=== PATIENT | male | born 1935 | race Caucasian/White ===

== ENCOUNTER 2016-12-24 14:56 | Inpatient (IN) | payer MEDICARE ==
[~2016-12-24] VITALS: Ht 180.3 cm; Wt 89.1 kg
--- NOTE | 2016-12-24 16:00 | NUR ---
DIRECT ADMIT VIA [facility]. AMBULATED TO BED WITH STAND BY ASSIST. RESPS EVEN AND UNLABORED ON O2 VIA NC, TELE MONITOR IN PLACE. ABLE TO SPEAK IN COMPLETE SENTENCES WITHOUT DIFFICULTY. DENIES PAIN OR DISCOMFORT. PO FLUIDS OFFERED. ORIENTED TO ROOM AND CALL SYSTEM. SAFETY PRECAUTIONS REINFORCED. BED IN LOWEST POSITION WITH WHEELS LOCKED. CALL LIGHT WITHIN REACH. WILL CONTINUE TO MONITOR.
[2016-12-24 16:10] VITALS: BP 150/57
[2016-12-24 16:44] LABS: HEMATOCRIT 28.8 % (39.0-50.0); HEMOGLOBIN 9.1 g/dl (14.0-18.0); IMMATURE GRANULOCYTES 0.2 % (0.0-1.0); MEAN CELL VOLUME 110.3 fL CALC (80.0-100.0); MEAN CORPUSCULAR HGB 34.9 pG CALC (26.0-32.0); MEAN CORPUSCULAR HGB CONC 31.6 g/L CALC (32.0-36.0); NEUT# 3.31 thou/uL (1.82-7.42); RED BLOOD COUNT 2.61 mill/uL (4.70-6.10); RED CELL DISTRI WIDTH 16.1 % (11.5-15.5)
[2016-12-24 17:19] LABS: ALBUMIN 3.9 g/dL (3.2-5.0); ALKALINE PHOSPHATASE 52 u/l (38-126); ANION GAP 15 (6-22 (CALC)); BILIRUBIN, TOTAL 0.6 mg/dL (0.0-1.4); BUN 25 mg/dL (8-23); BUN/CREATININE RATIO 24 (12-20 (CALC)); CARBON DIOXIDE 23 mmol/l (22-30); CHLORIDE 110 mmol/l (95-108); CREATININE 1.1 mg/dL (0.7-1.3); GFR > 60 ML/MIN (>=60 (CALC)); GFR FOR AFR.AMER. > 60 ML/MIN (>=60 (CALC)); GLUCOSE 119 mg/dL (82-115); POTASSIUM 4.1 mmol/l (3.5-5.1); SGOT/AST 13 u/l (19-48); SGPT/ALT 24 u/l (11-66); SODIUM 145 mmol/l (137-146); TOTAL PROTEIN 6.9 g/dL (6.3-8.2)
[2016-12-24 19:20] VITALS: BP 125/63
--- NOTE | 2016-12-24 19:20 | NUR ---
PT SITTING UP IN BED. PT IS ALERT AND ORIENTED X3. PERRLA. RESP ARE EVEN AND UNLABORED. LUNGS ARE CLEAR. HR IRREGULAR. PULSES PALPABLE THROUGHOUT.NO EDEMA NOTED. BS ACTIVE. PT REPORTS HAVING A BM TODAY. TELE IN PLACE. #20 RAC. NO REDNESS OR EDEMA NOTED. WILL CONTINUE TO MONITOR
[2016-12-25] VITALS (7 sets, daily range): BP systolic 97–128; BP diastolic 50–60
--- NOTE | 2016-12-25 00:33 | NUR ---
PT RESTING IN BED WITH EYES CLOSED. AROUSES TO VERBAL STIMULI. RESP ARE EVEN AND UNLABORED. TELE IN PLACE. O2 2L NC IN PLACE. NO CHANGE IN PT STATUS WILL CONTINUE TO MONITOR.
--- NOTE | 2016-12-25 04:00 | NUR ---
PT RESTING IN BED WITH EYES CLOSED. AROUSES TO VERBAL STIMULI. RESP ARE EVEN AND UNLABORED. NO CHANGE IN PT CONDITION. TELE IN PLACE. O2 2L NC IN PLACE. WILL CONTINUE TO MONITOR
[2016-12-25 05:40] LABS: HEMOGLOBIN 8.6 g/dl (14.0-18.0); MEAN CELL VOLUME 109.3 fL CALC (80.0-100.0); MEAN CORPUSCULAR HGB 34.8 pG CALC (26.0-32.0); MEAN CORPUSCULAR HGB CONC 31.9 g/L CALC (32.0-36.0); RED BLOOD COUNT 2.47 mill/uL (4.70-6.10)
[2016-12-25 05:41] LABS: ANION GAP 15 (6-22 (CALC)); BUN 24 mg/dL (8-23); BUN/CREATININE RATIO 24 (12-20 (CALC)); CALCIUM 8.8 mg/dL (8.4-10.2); CALCULATED LDLCHOLESTEROL 75 mg/dL (62-129 (CALC)); CARBON DIOXIDE 23 mmol/l (22-30); CHLORIDE 111 mmol/l (95-108); GFR > 60 ML/MIN (>=60 (CALC)); GFR FOR AFR.AMER. > 60 ML/MIN (>=60 (CALC)); GLUCOSE 122 mg/dL (82-115); HDL CHOLESTEROL 29 mg/dL (>=40); MAGNESIUM 2.3 mg/dL (1.6-2.3); POTASSIUM 4.3 mmol/l (3.5-5.1); SODIUM 144 mmol/l (137-146); TOTAL CHOLESTEROL 116 mg/dl (0-199); TOTAL TRIGLYCERIDES 60 mg/dl (30-149); VLDL CHOLESTROL 12 mg/dl (0-38 (CALC))
--- NOTE | 2016-12-25 06:00 | NUR ---
PT TO RADIOLOGY FOR CHEST XRAY
--- NOTE | 2016-12-25 06:30 | NUR ---
PT RETURNED FROM RADIOLOGY. STOOL SAMPLE OBTAINED AND SENT TO LAB.
--- NOTE | 2016-12-25 07:00 | NUR ---
RECIEVED REPORT FROM AN BECKHAM. PT AWAKE ON ENTRY, RESTING IN SUPINE POSITION. RESP EVEN AND UNLABORED. NO SIGNS OF DISTRESS. NO COMPLAINTS OF PAIN AT THE MOMENT FROM PT. SAFETY PRECAUTIONS IN PLACE. CALL LIGHT WITHIN REACH.
[2016-12-25] MEDS ORDERED: BRILINTA90 MG PO (10:06)
[2016-12-25] MEDS ORDERED: ALLOPURINOL100 MG PO (10:22)
[2016-12-25] MEDS ORDERED: LOSARTAN POTASS50 MG PO (10:34)
[2016-12-25] MEDS ORDERED: FUROSEMIDE20 MG PO (10:41)
[2016-12-25] MEDS ORDERED: PROTONIX40 M2 PO (10:42)
[2016-12-25] MEDS ORDERED: PRAVASTATIN80 MG PO (10:42)
[2016-12-25] MEDS ORDERED: B121000 MCG PO (10:43)
[2016-12-25] MEDS ORDERED: NIACIN ER1000 MG PO (10:44)
[2016-12-25] MEDS ORDERED: ADLT ASA LOW81 MG PO (10:45)
[2016-12-25] MEDS ORDERED: STOOL SOFTENER100 MG PO (10:45)
[2016-12-25] MEDS ORDERED: LOPRESSOR50 M1 PO (10:47)
--- NOTE | 2016-12-25 15:22 | NUR ---
PT RESTING ON SIDE OF BED TALKING WITH FAMILY. NO COMPLAINTS OF PAIN. PT TOOK HIS O2 OFF, HIS O2 SAT IS 96 ON ROOM AIR. RESP EVEN AND UNLABPORED. SAFETY PRECAUTIONS WITH IN PLACE. CALL LIGHT WITHIN REACH.
--- NOTE | 2016-12-25 17:45 | NUR ---
PT EATING DINNER AND WATCHING TV. RESP EVEN AND UNLABORED. NO COMPLAINTS OF PAIN FROM PT. IV SIGHT APPEARS HEALTHY. CALL LIGHT WITHIN REACH.
--- NOTE | 2016-12-25 19:30 | NUR ---
PATIENT RESTING IN BED AT THIS TIME-AWAKE ALERT AND ORIENTEDX3 WITH NO COMPLAINTS. O2 REMOVED AND ROXY CONT TO MONITOR O2 SATS. IV SITE TO RIGHT AC-EMS SITE AND APPEARS HEALTHY AT THIS TIME. PATIENT DENIES ANY DIFFICULTY VOIDING AND STATES THATHE HAD A BM TODAY. INSTRUCTED TO USE URINAL FOR I&O. VERBALIZES UNDERSTANDING. SAFETY PRECAUTIONS REINFORCED. CALL LIGHT IN REACH. WILL CONT TO MONITOR.
--- NOTE | 2016-12-25 21:00 | NUR ---
NEW IV SITE STARTED TO LEFT FOREARM WITH GOOD BLOOD RETURN-#22 GAUGE. EMS SITE TO RIGHT AC D/C'ED. REFUSING TO WEAR TEDS AT THIS TIME. CALL LIGHT IN REACH. WILL CONT TO MONITOR.
--- NOTE | 2016-12-25 23:43 | NUR ---
PATIENT RESTING IN BED AT THIS TIME-AWAKE ALERT AND ORIENTEDX3 WITH NO COMPLAINTS. O2 REMOVED AND WILL CONT TO MONITOR O2 SAT. IV SITE TO RIGHT AC-EMS SITE AND APPEARS HEALTHY AT THIS TIME. PATIENT DENIES ANY DIFFICULTY VOIDING AND STATES THAT HE HAD A BM TODAY. INSTRUCTED TO USE URINAL FOR I&O. VERBALIZES UNDERSTANDING. SAFETY PRECAUTIONS REINFORCED. CALL LIGHT IN REACH. WILL CONT TO MONITOR.
[2016-12-26 05:39] VITALS: BP 99/49
[2016-12-26 05:55] LABS: HEMATOCRIT 27.9 % (39.0-50.0); IMMATURE GRANULOCYTES 0.2 % (0.0-1.0); MEAN CELL VOLUME 108.1 fL CALC (80.0-100.0); MEAN CORPUSCULAR HGB 34.9 pG CALC (26.0-32.0); MEAN CORPUSCULAR HGB CONC 32.3 g/L CALC (32.0-36.0); NEUT# 3.58 thou/uL (1.82-7.42); RED BLOOD COUNT 2.58 mill/uL (4.70-6.10); RED CELL DISTRI WIDTH 15.7 % (11.5-15.5)
[2016-12-26 06:19] LABS: ANION GAP 14 (6-22 (CALC)); BUN 24 mg/dL (8-23); BUN/CREATININE RATIO 24 (12-20 (CALC)); CARBON DIOXIDE 24 mmol/l (22-30); CHLORIDE 108 mmol/l (95-108); GFR > 60 ML/MIN (>=60 (CALC)); GFR FOR AFR.AMER. > 60 ML/MIN (>=60 (CALC)); GLUCOSE 117 mg/dL (82-115); MAGNESIUM 2.1 mg/dL (1.6-2.3); POTASSIUM 4.1 mmol/l (3.5-5.1); SODIUM 142 mmol/l (137-146)
--- NOTE | 2016-12-26 07:00 | NUR ---
REPORT RECIEVED FROM AN CARRIZALES. PT AWAKE ON ENTRY WATCHING TV. NO SIGNS OF DISTRESS. NO COMPLAINTS OF PAIN FROM PT. RESP EVEN AND UNLABORED. SAFETY PRECAUTIONS IN PLACE. CALL LIGHT WITHIN REACH. WILL CONTINUE TO MONITOR HOURLY.
[2016-12-26 07:54] VITALS: BP 126/52
--- NOTE | 2016-12-26 11:50 | NUR ---
PT EATING LUNCH WITH FAMILY AT BEDSIDE. WATCHING TV. PT HAS NO COMPLAINTS OF PAIN. IV SIGHT APPEARS HEALTHY. SAFETY PRECAUTIONS REINFORCED. CALL LIGHT WITHIN REACH.
[2016-12-26] MEDS ORDERED: VENOFER20 MG/ML IM (11:57)
[2016-12-26 12:20] VITALS: BP 94/54
--- NOTE | 2016-12-26 14:25 | NUR ---
Discharge instructions given. Patient verbalizes understanding of same. Discharged in stable condition via Wheelchair to Home with family. All belongings sent with pt.
== END 2016-12-26 14:28 | disposition home or self-care (01) | DRG 811 ==
LOC: MS2 14:56
PROVIDERS: Nurse Practitioner Family; ADMIT Internal Medicine; ATTEND Internal Medicine
PROC: 3E0234Z Introduction of Serum, Toxoid and Vaccine into Muscle, Percutaneous Approach (ICD-10-PCS; principal; 2016-12-26)
DX: D62 Acute posthemorrhagic anemia (principal); I50.43 Acute on chronic combined systolic (congestive) and diastolic (congestive) heart failure; I48.2 Chronic atrial fibrillation; K62.5 Hemorrhage of anus and rectum; I11.0 Hypertensive heart disease with heart failure; I35.0 Nonrheumatic aortic (valve) stenosis; I25.10 Atherosclerotic heart disease of native coronary artery without angina pectoris; E78.5 Hyperlipidemia, unspecified; N40.0 Benign prostatic hyperplasia without lower urinary tract symptoms; I71.9 Aortic aneurysm of unspecified site, without rupture; M54.9 Dorsalgia, unspecified; G89.29 Other chronic pain; I25.2 Old myocardial infarction; Z85.118 Personal history of other malignant neoplasm of bronchus and lung; Z79.02 Long term (current) use of antithrombotics/antiplatelets; Z90.2 Acquired absence of lung [part of]; Z95.1 Presence of aortocoronary bypass graft; Z87.891 Personal history of nicotine dependence; Z23 Encounter for immunization; Z79.82 Long term (current) use of aspirin; Z95.5 Presence of coronary angioplasty implant and graft
CPT/HCPCS: J0885; J1756

== ENCOUNTER 2017-02-05 15:52 | Inpatient (IN) | payer MEDICARE ==
[~2017-02-05] VITALS: Ht 180.3 cm; Wt 90.8 kg
[~2017-02-05 15:52] MED LIST: ADLT ASA LOW81 MG PO; ALLOPURINOL100 MG PO; B121000 MCG PO; BRILINTA90 MG PO; FUROSEMIDE20 MG PO; LOPRESSOR50 M1 PO; LOSARTAN POTASS50 MG PO; NIACIN ER1000 MG PO; PRAVASTATIN80 MG PO; PROTONIX40 M2 PO; STOOL SOFTENER100 MG PO; VENOFER20 MG/ML IM
[2017-02-05 16:15] VITALS: BP 99/59
[2017-02-05] MEDS ORDERED: ASPIRIN 81 LOW81 MG PO (16:54)
[2017-02-05 18:30] VITALS: BP 111/64
[2017-02-06] VITALS (7 sets, daily range): BP systolic 106–115; BP diastolic 50–61
[2017-02-06 05:58] LABS: HEMATOCRIT 24.8 % (39.0-50.0); HEMOGLOBIN 7.7 g/dl (14.0-18.0); IMMATURE GRANULOCYTES 0.4 % (0.0-1.0); MEAN CELL VOLUME 106.4 fL CALC (80.0-100.0); NEUT# 5.08 thou/uL (1.82-7.42); RED BLOOD COUNT 2.33 mill/uL (4.70-6.10); RED CELL DISTRI WIDTH 20.3 % (11.5-15.5)
[2017-02-06 06:08] LABS: ANION GAP 14 (6-22 (CALC)); BUN 24 mg/dL (8-23); BUN/CREATININE RATIO 24 (12-20 (CALC)); CALCIUM 8.3 mg/dL (8.4-10.2); CARBON DIOXIDE 20 mmol/l (22-30); CHLORIDE 112 mmol/l (95-108); GFR > 60 ML/MIN (>=60 (CALC)); GFR FOR AFR.AMER. > 60 ML/MIN (>=60 (CALC)); GLUCOSE 97 mg/dL (82-115); MAGNESIUM 2.1 mg/dL (1.6-2.3); POTASSIUM 4.6 mmol/l (3.5-5.1); SODIUM 141 mmol/l (137-146)
[2017-02-06] MEDS ORDERED: METOPROL TAR25 M1 PO (16:01)
[2017-02-06 20:57] LABS: URINE BILIRUBIN - DIPSTICK NEGATIVE (NEGATIVE); URINE BLOOD DIPSTICK MODERATE (NEGATIVE); URINE CLARITY CLEAR; URINE COLOR YELLOW; URINE GLUCOSE - DIPSTICK NEGATIVE (NEGATIVE); URINE KETONE NEGATIVE (NEGATIVE); URINE LEUK ESTERASE NEGATIVE (NEGATIVE); URINE NITRITE - DIPSTICK NEGATIVE (Negative); URINE PROTEIN - DIPSTICK NEGATIVE (NEG-TRACE)
[2017-02-07] VITALS (11 sets, daily range): BP systolic 99–137; BP diastolic 48–71
[2017-02-07 05:44] LABS: ANION GAP 13 (6-22 (CALC)); BUN 21 mg/dL (8-23); BUN/CREATININE RATIO 23 (12-20 (CALC)); CALCIUM 8.3 mg/dL (8.4-10.2); CARBON DIOXIDE 20 mmol/l (22-30); CHLORIDE 111 mmol/l (95-108); CREATININE 0.9 mg/dL (0.7-1.3); GFR > 60 ML/MIN (>=60 (CALC)); GFR FOR AFR.AMER. > 60 ML/MIN (>=60 (CALC)); GLUCOSE 107 mg/dL (82-115); MAGNESIUM 2.2 mg/dL (1.6-2.3); POTASSIUM 4.4 mmol/l (3.5-5.1); SODIUM 140 mmol/l (137-146)
[2017-02-07 05:46] LABS: HEMATOCRIT 23.7 % (39.0-50.0); HEMOGLOBIN 7.5 g/dl (14.0-18.0); IMMATURE GRANULOCYTES 0.3 % (0.0-1.0); MEAN CELL VOLUME 105.8 fL CALC (80.0-100.0); MEAN CORPUSCULAR HGB 33.5 pG CALC (26.0-32.0); MEAN CORPUSCULAR HGB CONC 31.6 g/L CALC (32.0-36.0); NEUT# 3.65 thou/uL (1.82-7.42); RED BLOOD COUNT 2.24 mill/uL (4.70-6.10); RED CELL DISTRI WIDTH 20.1 % (11.5-15.5)
[2017-02-08 05:00] VITALS: BP 111/63
[2017-02-08 06:24] LABS: HEMOGLOBIN 8.3 g/dl (14.0-18.0); IMMATURE GRANULOCYTES 0.3 % (0.0-1.0); MEAN CELL VOLUME 102.8 fL CALC (80.0-100.0); MEAN CORPUSCULAR HGB 32.8 pG CALC (26.0-32.0); MEAN CORPUSCULAR HGB CONC 31.9 g/L CALC (32.0-36.0); NEUT# 4.1 thou/uL (1.82-7.42); RED BLOOD COUNT 2.53 mill/uL (4.70-6.10); RED CELL DISTRI WIDTH 21.9 % (11.5-15.5)
[2017-02-08 06:52] LABS: ANION GAP 14 (6-22 (CALC)); BUN 20 mg/dL (8-23); BUN/CREATININE RATIO 20 (12-20 (CALC)); CALCIUM 8.3 mg/dL (8.4-10.2); CARBON DIOXIDE 22 mmol/l (22-30); CHLORIDE 109 mmol/l (95-108); GFR > 60 ML/MIN (>=60 (CALC)); GFR FOR AFR.AMER. > 60 ML/MIN (>=60 (CALC)); GLUCOSE 109 mg/dL (82-115); POTASSIUM 4.6 mmol/l (3.5-5.1); SODIUM 140 mmol/l (137-146)
[2017-02-08 07:16] VITALS: BP 135/62
[2017-02-08] MEDS ORDERED: TRAMADOL HCL50 MG PO (10:40)
[2017-02-08] MEDS ORDERED: ALDACTONE25 MG PO (10:40)
[2017-02-08] MEDS ORDERED: LEXAPRO10 MG PO (10:40)
[2017-02-08 11:45] VITALS: BP 109/54
== END 2017-02-08 12:15 | disposition home health service (06) | DRG 812 ==
LOC: MS2 15:52
PROVIDERS: Nurse Practitioner Family; ADMIT Internal Medicine; ATTEND Internal Medicine
PROC: 30233N1 Transfusion of Nonautologous Red Blood Cells into Peripheral Vein, Percutaneous Approach (ICD-10-PCS; principal; 2017-02-07)
DX: D62 Acute posthemorrhagic anemia (principal); I11.0 Hypertensive heart disease with heart failure; I95.9 Hypotension, unspecified; I48.2 Chronic atrial fibrillation; I50.22 Chronic systolic (congestive) heart failure; K92.2 Gastrointestinal hemorrhage, unspecified; I35.0 Nonrheumatic aortic (valve) stenosis; I25.10 Atherosclerotic heart disease of native coronary artery without angina pectoris; D75.89 Other specified diseases of blood and blood-forming organs; I71.4 Abdominal aortic aneurysm, without rupture; E78.5 Hyperlipidemia, unspecified; N40.0 Benign prostatic hyperplasia without lower urinary tract symptoms; F32.9 Major depressive disorder, single episode, unspecified; R22.0 Localized swelling, mass and lump, head; I25.2 Old myocardial infarction; Z79.82 Long term (current) use of aspirin; Z95.0 Presence of cardiac pacemaker; Z85.118 Personal history of other malignant neoplasm of bronchus and lung; Z87.891 Personal history of nicotine dependence; Z90.2 Acquired absence of lung [part of]; Z95.5 Presence of coronary angioplasty implant and graft; Z95.1 Presence of aortocoronary bypass graft
CPT/HCPCS: P9016; Q0138

== ENCOUNTER 2017-04-04 06:27 | Day surgery (SDC) | payer MEDICARE ==
[~2017-04-04] VITALS: Ht 180.3 cm; Wt 85.7 kg
[~2017-04-04 06:27] MED LIST changes: +ADULT ASPIRIN R81 MG PO; +ALDACTONE25 MG PO; +ASPIRIN 81 LOW81 MG PO; +LEXAPRO10 MG PO; +METOPROL TAR25 M1 PO; +TRAMADOL HCL50 MG PO
[2017-04-04] MEDS ORDERED: LORTAB 5/3255 MG PO (12:01)
[2017-04-04 12:56] VITALS: BP 127/60
== END 2017-04-04 12:45 | disposition home or self-care (01) ==
LOC: ORM 06:27
PROVIDERS: ATTEND Surgery
PROC: 07B Lymphatic and Hemic Systems, Excision (ICD-10-PCS; principal; 2017-04-04)
DX: C96.9 Malignant neoplasm of lymphoid, hematopoietic and related tissue, unspecified (principal); C79.89 Secondary malignant neoplasm of other specified sites; Z85.828 Personal history of other malignant neoplasm of skin

== ENCOUNTER 2017-04-09 12:19 | Emergency (ER) | payer MEDICARE ==
[~2017-04-09] VITALS: Ht 180.3 cm; Wt 87.0 kg
[~2017-04-09 12:19] MED LIST changes: +LORTAB 5/3255 MG PO
[2017-04-09] MEDS ORDERED: KEFLEX500 MG PO (13:17)
[2017-04-09 13:18] VITALS: BP 120/70
== END 2017-04-09 13:25 | disposition home or self-care (01) ==
LOC: ED 12:19
PROC: 0HQ1XZZ Repair Face Skin, External Approach (ICD-10-PCS; principal; 2017-04-09)
DX: T81.31XA Disruption of external operation (surgical) wound, not elsewhere classified, initial encounter (principal)

== ENCOUNTER 2017-11-23 09:40 | Outpatient (REF) | payer MEDICARE ==
[~2017-11-23 09:40] MED LIST changes: +KEFLEX500 MG PO
[2017-11-23 11:18] VITALS: BP 120/67
== END 2017-11-23 11:41 | disposition home or self-care (01) ==
LOC: INF 09:40
PROVIDERS: ATTEND Internal Medicine
DX: D50.9 Iron deficiency anemia, unspecified (principal); N18.1 Chronic kidney disease, stage 1
CPT/HCPCS: Q0138